=== PATIENT | male | born 1985 | race Caucasian/White ===

== ENCOUNTER 2021-02-11 10:09 | Emergency (ER) | payer SELFPAY ==
[~2021-02-11] VITALS: Ht 182.9 cm; Wt 127.2 kg
[2021-02-11] MEDS ORDERED: IV NORMAL SALINE 1000ML BAG 1,000 ML IV SCH (10:30)
[2021-02-11] MEDS ORDERED: ONDANSETRON PF 4 MG/2 ML VIAL. IVP ONE (10:30)
[2021-02-11] MEDS ORDERED: KETOROLAC 30 MG/ML VIAL. IVP ONE (10:30)
[2021-02-11] MEDS ORDERED: fentaNYL PF VIAL 100 MCG/2 ML VIAL IVP ONE (10:30)
[2021-02-11 10:32] LABS: BASO # 0.1 x10^3/uL (0.0-0.2); BASO % 1 % (0-3); EOS # 0.1 x10^3/uL (0.0-0.7); EOS % 1 % (0-3); HEMATOCRIT 43.6 % (39.0-53.0); LYMPH # 1.6 x10^3/uL (1.0-4.8); LYMPH % 17 % (24-48); MEAN CORPUSCULAR HEMOGLOBIN 30 pg (25-35); MEAN CORPUSCULAR HGB CONC 35 g/dL (31-37); MEAN CORPUSCULAR VOLUME 86 fL (79-100); MONO # 0.6 x10^3/uL (0.0-1.1); MONO % 6 % (0-9); NEUT # 7.5 x10^3/uL (1.8-7.7); NEUT % 76 % (31-73); PLATELET COUNT 183 x10^3/uL (140-400); RED BLOOD COUNT 5.08 x10^6/uL (4.30-5.70); RED CELL DISTRIBUTION WIDTH 13.3 % (11.5-14.5); WHITE BLOOD COUNT 9.8 x10^3/uL (4.0-11.0)
--- NOTE | 2021-02-11 10:42 | PHYS DOC ---
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 He has had a kidney stone in the past with a cystoscopy with a stent, stone removal and asthma, cholecystectomy, appendectomy and a h ernia repair. He is currently rating his pain a 10 out of 10. He did not take anything for his symptoms as of yet. Review of Systems: Review of Systems: Constitutional: Denies fever or +chills. [] Eyes: Denies change in visual acuity. [] HENT: Denies nasal congestion or sore throat. [] Respiratory: Denies cough or shortness of breath. [] Cardiovascular: Denies chest pain or edema. [] GI: + Left lower abdominal pain, +nausea, +vomiting, denies bloody stools or diarrhea. [] : Denies dysuria. + Hematuria [] Musculoskeletal: + Left flank back pain or denies joint pain. [] Integument: Denies rash. [] Neurologic: Denies headache, focal weakness or sensory changes. [] Endocrine: Denies polyuria or polydipsia. [] Lymphatic: Denies swollen glands. [] Psychiatric: Denies depression or anxiety. [] Heart Score: C/O Chest Pain: No Risk Factors: Risk Factors: DM, Current or recent (<one month) smoker, HTN, HLP, family history of CAD, obesity. Risk Scores: Score 0 - 3: 2.5% MACE over next 6 weeks - Discharge Home Score 4 - 6: 20.3% MACE over next 6 weeks - Admit for Clinical Observation Score 7 - 10: 72.7% MACE over next 6 weeks - Early Invasive Strategies Current Medications: Current Medications Medications (Trade) Dose Ordered Sig/Keihsa Start Time Stop Time Status Last Admin Dose Admin Fentanyl Citrate (Fentanyl 2ml Vial) 50 mcg 1X ONCE 02/11/21 10:30 02/11/21 10:31 DC Ketorolac Tromethamine (Toradol 30mg Vial) 30 mg 1X ONCE 02/11/21 10:30 02/11/21 10:31 DC Ondansetron HCl (Zofran) 4 mg 1X ONCE 02/11/21 10:30 02/11/21 10:31 DC Sodium Chloride 1,000 ml @ 1,000 mls/hr Q1H 02/11/21 10:30 02/11/21 11:29 02/11/21 10:31 1,000 MLS/HR Allergies: Allergies: Allergies Coded Allergies Type Severity Reaction Last Updated Verified cefaclor Allergy Unknown UNKNOWN 02/11/21 Yes Physical Exam: PE: Constitutional: Well developed, well nourished, no acute distress, non-toxic appearance. [] HENT: Normocephalic, atraumatic, bilateral external ears normal, oropharynx moist, no oral exudates, nose normal. [] Eyes: PERRLA, EOMI, conjunctiva normal, no discharge. [] Neck: Normal range of motion, no tenderness, supple, no stridor. [] Cardiovascular:Heart rate regular rhythm, no murmur [] Lungs & Thorax: Bilateral breath sounds clear to auscultation [] Abdomen: Bowel sounds normal, soft, no tenderness, no masses, no pulsatile masses. [] Skin: Warm, dry, no erythema, no rash. [] Back: No tenderness, left CVA tenderness. [] Extremities: No tenderness, no cyanosis, no clubbing, ROM intact, no edema. [] Neurologic: Alert and oriented X 3, normal motor function, normal sensory function, no focal deficits noted. [] Psychologic: Affect normal, judgement normal, mood normal. [] Current Patient Data: Labs: Laboratory Tests Test 02/11/21 10:20 White Blood Count 9.8 x10^3/uL (4.0-11.0) Red Blood Count 5.08 x10^6/uL (4.30-5.70) Hemoglobin 15.0 g/dL (13.0-17.5) Hematocrit 43.6 % (39.0-53.0) Mean Corpuscular Volume 86 fL (79-100) Mean Corpuscular Hemoglobin 30 pg (25-35) Mean Corpuscular Hemoglobin Concent 35 g/dL (31-37) Red Cell Distribution Width 13.3 % (11.5-14.5) Platelet Count 183 x10^3/uL (140-400) Neutrophils (%) (Auto) 76 % (31-73) H Lymphocytes (%) (Auto) 17 % (24-48) L Monocytes (%) (Auto) 6 % (0-9) Eosinophils (%) (Auto) 1 % (0-3) Basophils (%) (Auto) 1 % (0-3) Neutrophils # (Auto) 7.5 x10^3/uL (1.8-7.7) Lymphocytes # (Auto) 1.6 x10^3/uL (1.0-4.8) Monocytes # (Auto) 0.6 x10^3/uL (0.0-1.1) Eosinophils # (Auto) 0.1 x10^3/uL (0.0-0.7) Basophils # (Auto) 0.1 x10^3/uL (0.0-0.2) Laboratory Tests 02/11/21 10:20 Vital Signs: Vital Signs Date Time Temp Pulse Resp B/P (MAP) Pulse Ox O2 Delivery O2 Flow Rate FiO2 02/11/21 10:09 96.8 57 19 134/64 (87) 99 Room Air 96.8 EKG: EK and read by Dr. Merino has a sinus bradycardia with no STEMI [] Radiology/Procedures: Radiology/Procedures: [] Impression: [facility] [address] [place], [place] [id number] IMAGING REPORT Signed PATIENT: JAG VEGAS CACCOUNT: [id number] : 1985 LOCATION: ER AGE: 35 SEX: M EXAM STATUS: REG ER ORD. PHYSICIAN: LLOYD BARAJAS APRN REASON: left flank pain to left abd, vomiting, hematuria PROCEDURE: CT ABDOMEN PELVIS WO CONTRAST INDICATION: Reason: left flank pain to left abd, vomiting, hematuria / Spl. Instructions: / History: . COMPARISON: None. TECHNIQUE: Axial CT images obtained through the abdomen and pelvis without contrast. One or more of the following individualized dose reduction techniques were u tilized for this examination: 1. Automated exposure control; 2. Adjustment of the mA and/or kV according to patient size; 3. Use of iterative reconstruction technique. FINDINGS: Abdominal aorta is not aneurysmal. Small fat-containing left inguinal hernia. Liver is low density which can be seen with fatty infiltration. There is a relatively higher density region within the left lobe of liver which could be from fatty sparing. Postcholecystectomy. No peripancreatic fluid collection. No perisplenic hematoma. Mild left-sided hydronephrosis and proximal hydroureter with 4 mm left proximal ureter stone. Urinary bladder is partially distended. No right-sided hydronephrosis. There is angulation at the sacrum and coccyx. Anterior to the sacrum there is either a small amount of high density fluid or soft tissue thickening within the region but nonspecific appearance. Colonic diverticulosis. No dilated loops of bowel suggest obstruction. Mild degenerative changes the spine with some disc protrusions. Pars defect at L5. IMPRESSION: * Left-sided hydronephrosis with proximal ureter stone. * There is either soft tissue thickening anterior to the sacrum or small amount of high density fluid in the area. There is adjacent angulation at the sacrum and coccyx. * Majority the liver is low density which can be seen with fatty infiltration. There is a central component which is higher density which is commonly secondary to fatty sparing but incompletely characterized on a noncontrast examination and if further evaluation is desired to ensure that there is no underlying lesion nonemergent MRI liver protocol could BE obtained. Electronically signed by: Leslie Wharton MD (02/11/2021 11:17 AM) DESKTOP- [id number] DICTATED and SIGNED BY: LESLIE WHARTON MD DATE: 02/11/21 [id number] Course & Med Decision Making: Course & Med Decision Making Pertinent Labs and Imaging studies reviewed. (See chart for details) See HPI. Alert and oriented x4. Ambulatory with a steady gait. Speaks in full clear sentences. Abdomen is soft and nontender. Left CVA tenderness. Speaks in full clear sentences. Skin pink warm and dry. Vital signs are within normal limits. Patient has a 4 mm kidney stone. 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 Patient will follow up with urology in [place]. Urine is not infected. Patient is stable and discharged. [] Dragon Disclaimer: Dragon Disclaimer: This electronic medical record was generated, in whole or in part, using a voice recognition dictation system. Departure Departure Impression: Primary Impression: Kidney stone on left side Disposition: 01 HOME / SELF CARE / HOMELESS Condition: STABLE Patient Instructions: Diet for Kidney Stones, Kidney Stones Additional Instructions: Drink plenty of fluids. Follow-up with a urologist soon as possible. Take medication as prescribed and with food. Scripts Ondansetron (ONDANSETRON ODT) 4 Mg Tab.rapdis 1 TAB PO PRN Q6-8HRS, #16 TAB Prov: LLOYD BARAJAS [employer] 02/11/21 Hydrocodone Bit/Acetaminophen (HYDROCODONE-APAP 5-325 ) 1 Tab Tablet 1 TAB PO PRN Q6HRS PRN for PAIN, #15 TAB 0 Refills Prov: LLOYD BARAJAS APRN 02/11/21 Ketorolac Tromethamine (KETOROLAC TROMETHAMINE) 10 Mg Tablet 1 TAB PO TID, #15 TAB Prov: LLOYD BARAJAS APRN 02/11/21 Tamsulosin Hcl (FLOMAX) 0.4 Mg Cap.er.24h 1 CAP PO DAILY, #30 CAP 11 Refills Prov: LLOYD BARAJAS APR02/11/21 LLOYD BARAJAS APRN Feb 11, 2021 10:42
[2021-02-11 10:43] LABS: CALCIUM 8.4 mg/dL (8.5-10.1); CREATININE 0.9 mg/dL (0.7-1.3); GFR 97.2; POTASSIUM 4.6 mmol/L (3.5-5.1)
[2021-02-11 10:53] LABS: ALBUMIN 4.2 g/dL (3.4-5.0); ALBUMIN/GLOBULIN RATIO 1.8 (1.0-1.7); TOTAL BILIRUBIN 0.3 mg/dL (0.2-1.0); TOTAL PROTEIN 6.5 g/dL (6.4-8.2)
[2021-02-11] MEDS ORDERED: IV NORMAL SALINE 1000ML BAG 1,000 ML IV ONE (11:15)
--- NOTE | 2021-02-11 11:19 | RAD ---
INDICATION: Reason: left flank pain to left abd, vomiting, hematuria / Spl. Instructions: / History: . COMPARISON: None. TECHNIQUE: Axial CT images obtained through the abdomen and pelvis without contrast. One or more of the following individualized dose reduction techniques were utilized for this examinat ion: 1. Automated exposure control; 2. Adjustment of the mA and/or kV according to patient size; 3 . Use of iterative reconstruction technique. FINDINGS: Abdominal aorta is not aneurysmal. Small fat-containing left inguinal hernia. Liver is low density which can be seen with fatty infiltration. There is a relatively higher density region within the left lobe of liver which could be from fatty sparing. Postcholecystectomy. No peripancreatic fluid collection. No perisplenic hematoma. Mild left-sided hydronephrosis and proximal hydroureter with 4 mm left proximal ureter stone. Urinary bladder is partially distended. No right-sided hydronephrosis. There is angulation at the sacrum and coccyx. Anterior to the sacrum there is either a small amount of high density fluid or soft tissue thickening within the region but nonspecific appearance. Colonic diverticulosis. No dilated loops of bowel suggest obstruction. Mild degenerative changes the spine with some disc protrusions. Pars defect at L5. IMPRESSION: * Left-sided hydronephrosis with proximal ureter stone. * There is either soft tissue thickening anterior to the sacrum or small amount of high density flui d in the area. There is adjacent angulation at the sacrum and coccyx. * Majority the liver is low density which can be seen with fatty infiltration. There is a central co mponent which is higher density which is commonly secondary to fatty sparing but incompletely charact erized on a noncontrast examination and if further evaluation is desired to ensure that there is no u nderlying lesion nonemergent MRI liver protocol could BE obtained. Electronically signed by: Francisco Russell MD (02/11/2021 11:17 AM) DESKTOP-[id number]
[2021-02-11] MEDS ORDERED: TAMSULOSIN 0.4 MG CAP.ER.24H. PO ONE (11:45)
[2021-02-11 12:10] LABS: BILIRUBIN,URINE NEGATIVE (NEG); CLARITY,URINE CLEAR; COLOR,URINE AMBER; NITRITE,URINE NEGATIVE (NEG); PROTEIN,URINE 30 mg/dL (NEG-TRACE); UROBILINOGEN,URINE 0.2 mg/dL (0.2 mg/dL)
[2021-02-11 12:26] LABS: RBC,URINE TNTC /HPF (0-2)
[2021-02-11 12:28] LABS: BACTERIA,URINE FEW /HPF (0-FEW)
[2021-02-11] MEDS ORDERED: KETO10TA PO (12:43)
[2021-02-11] MEDS ORDERED: ONDA4TAB12 PO (12:43)
[2021-02-11] MEDS ORDERED: TAMS0.4C97 PO (12:43)
[2021-02-11] MEDS ORDERED: HYDR-2761 PO (12:43)
--- NOTE | 2021-02-11 12:53 | EKG ---
[facility] [address] [place] [address] Test Date: 2021-02-11 Test Time: 10:30:29 Pat Name: JAG VEGAS Department: Room: Gender: [employer]anger [employer] Repairer: : 1985 Requested By: LLOYD BARAJAS Order Number: [id number] Reading MD: Measurements Intervals [place] Rate: 48 P: 0 VA: 154 QRS: 10 QRSD: 84 T: 11 QT: 388 QTc: 350 Interpretive Statements SINUS BRADYCARDIA OTHERWISE NORMAL ECG RI6.02 No previous ECG available for comparison
[2021-02-11 12:56] VITALS: BP 108/58
== END 2021-02-11 13:11 | disposition home or self-care (01) ==
LOC: ER 10:09
DX: N13.2 Hydronephrosis with renal and ureteral calculous obstruction (principal); J45.909 Unspecified asthma, uncomplicated; Z90.89 Acquired absence of other organs; Z90.49 Acquired absence of other specified parts of digestive tract; Z96.0 Presence of urogenital implants
CPT/HCPCS: 36415; 74176; 80053; 81001; 83690; 84484; 85025; 87086; 93005; 96361; 96374; 96375; 99285; J1885; J2405; J3010; J7030